=== PATIENT | male | born 1930 | race Caucasian/White ===

== ENCOUNTER → 2016-12-21 | Outpatient (REF) | payer MEDICARE ==
[~2016-12-21] MED LIST: /WARF5TA PO; ALTA10CA PO; simvastin PO
== END ==
LOC: M SFHCPLAZ 15:45
PROVIDERS: ATTEND Dermatology
DX: D04.30 Carcinoma in situ of skin of unspecified part of face (principal); L57.0 Actinic keratosis; D04.61 Carcinoma in situ of skin of right upper limb, including shoulder; L85.8 Other specified epidermal thickening
CPT/HCPCS: 11100; 11101; 17000; 17003; 88305; G0463

== ENCOUNTER → 2017-02-14 | Outpatient (REF) | payer MEDICARE ==
[2017-02-14 17:25] LABS: MEAN CORPUSCULAR HEMOGLOBIN 29.5 pg (27.0-33.0); MEAN CORPUSCULAR VOLUME 95.2 fl (80.0-96.0); RED CELL DISTRIBUTION WIDTH 12.4 % (11.5-14.5); WHITE BLOOD COUNT 9.4 K/mm3 (4.0-10.0)
[2017-02-14 17:50] LABS: ANION GAP 6 MEQ/L (8-16); BLOOD UREA NITROGEN 25 MG/DL (7-18); CALCIUM LEVEL 8.6 MG/DL (8.8-10.2); CARBON DIOXIDE LEVEL 32 MEQ/L (21-32); CHLORIDE LEVEL 101 MEQ/L (98-107); CREATININE FOR GFR 1.03 MG/DL (0.70-1.30); GLOMERULAR FILTRATION RATE > 60.0 (>35); GLUCOSE, FASTING 104 MG/DL (83-110); POTASSIUM SERUM 4.7 MEQ/L (3.5-5.1); SODIUM LEVEL 139 MEQ/L (136-145)
[2017-02-14 17:56] LABS: FOLATE 16.5 NG/ML; VITAMIN B12 LEVEL 404 PG/ML
== END ==
LOC: M SFHCPLAZ 16:06
PROVIDERS: ATTEND Internal Medicine
DX: F09 Unspecified mental disorder due to known physiological condition (principal); G47.09 Other insomnia; Z79.51 Long term (current) use of inhaled steroids; Z79.899 Other long term (current) drug therapy
CPT/HCPCS: 36415; 80048; 82607; 82746; 85027; G0463

== ENCOUNTER → 2017-06-28 | Outpatient (REF) | payer MEDICARE | LOC: M LAB REF 17:35 | PROVIDERS: ATTEND Dermatology | DX: C44.622 Squamous cell carcinoma of skin of right upper limb, including shoulder (principal) | CPT/HCPCS: 11100; 88305; G0463 ==

== ENCOUNTER → 2017-07-14 | Outpatient (REF) | payer MEDICARE ==
[2017-07-14 17:39] LABS: MEAN CORPUSCULAR HEMOGLOBIN 31.6 pg (27.0-33.0); MEAN CORPUSCULAR VOLUME 95.8 fl (80.0-96.0); RED CELL DISTRIBUTION WIDTH 12.3 % (11.5-14.5); WHITE BLOOD COUNT 8.2 K/mm3 (4.0-10.0)
[2017-07-14 17:46] LABS: ANION GAP 6 MEQ/L (8-16); BLOOD UREA NITROGEN 31 MG/DL (7-18); CALCIUM LEVEL 8.9 MG/DL (8.8-10.2); CARBON DIOXIDE LEVEL 33 MEQ/L (21-32); CHLORIDE LEVEL 99 MEQ/L (98-107); CREATININE FOR GFR 1.16 MG/DL (0.70-1.30); GLOMERULAR FILTRATION RATE > 60.0 (>35); GLUCOSE, FASTING 90 MG/DL (83-110); POTASSIUM SERUM 4.5 MEQ/L (3.5-5.1); SODIUM LEVEL 138 MEQ/L (136-145)
== END ==
LOC: M SFHCPLAZ 14:51
PROVIDERS: ATTEND Nurse Practitioner Family
DX: R39.198 Other difficulties with micturition (principal)
CPT/HCPCS: 80048; 81001; 81002; 85027; 87086; G0463

== ENCOUNTER → 2017-12-04 | Outpatient (REF) | payer MEDICARE ==
[2017-12-04 13:39] LABS: ALBUMIN 3.4 GM/DL (3.2-5.2); ALBUMIN/GLOBULIN RATIO 1.03 (1.00-1.93); ALKALINE PHOSPHATASE 105 U/L (45-117); ALT/SGPT 43 U/L (12-78); ANION GAP 4 MEQ/L (8-16); AST/SGOT 16 U/L (7-37); BILIRUBIN,TOTAL 0.6 MG/DL (0.2-1.0); BLOOD UREA NITROGEN 24 MG/DL (7-18); CALCIUM LEVEL 8.7 MG/DL (8.8-10.2); CARBON DIOXIDE LEVEL 37 MEQ/L (21-32); CHLORIDE LEVEL 97 MEQ/L (98-107); CREATININE FOR GFR 1.05 MG/DL (0.70-1.30); GLOMERULAR FILTRATION RATE > 60.0 (>35); GLUCOSE, FASTING 172 MG/DL (70-100); MAGNESIUM LEVEL 1.9 MG/DL (1.8-2.4); POTASSIUM SERUM 4.1 MEQ/L (3.5-5.1); SODIUM LEVEL 138 MEQ/L (136-145); TOTAL PROTEIN 6.7 GM/DL (6.4-8.2)
== END ==
LOC: M SFHCPLAZ 10:24
DX: I50.30 Unspecified diastolic (congestive) heart failure (principal)
CPT/HCPCS: 83735